=== PATIENT | male | born 1990 | race Two or more races ===

== ENCOUNTER 2018-03-26 14:44 | Emergency (ER) | payer MEDICAID, OTHER ==
[~2018-03-26] VITALS: Ht 175.3 cm; Wt 81.6 kg
[~2018-03-26 14:44] MED LIST: IBUPROFEN600 MG PO; NKM; NORCO 5-325 TA1 EACH ORAL; ONDANSETRON ODT4 MG ORAL
[2018-03-26] MEDS ORDERED: NKM (14:56)
[2018-03-26 15:07] VITALS: BP 96/53
--- NOTE | 2018-03-26 15:13 | Emergency Room Report ---
History of Present Illness General Chief Complaint: Multiple Trauma/Fall Source: Patient Present Illness HPI 28-year-old male patient presents the ER complaining of right shoulder pain status post falling off a second story roof 3 days ago. 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 Reports that he landed on his back. Denies hitting his head or loss of consciousness. Reports that he has some bruising on his back but does not feel any back pain, denies pain radiating down his legs. Denies bowel or bladder incontinence. Reports complaints of right shoulder pain. Reports pain with movement of shoulder. Denies vomiting or loss conscious. Denies vision changes. Reports does not take any medication for relief of pain symptoms. States that he thinks "the branches of the trees" help to "cushion his fall". Denies neck pain. Denies fever, chest pain, shortness of breath, abdominal pain. Patient ambulating independently without difficulty, denies pain with walking. Allergies: Coded Allergies: No Known Allergies (Unverified , 04/01/12) Patient History Past Medical History: see triage record Reviewed Nursing Documentation: PMH: Agreed; PSxH: Agreed Nursing Documentation-PMH Past Medical History: No Stated History Review of Systems All Other Systems: negative except mentioned in HPI Physical Exam Vital Signs Date Time Temp Pulse Resp B/P (MAP) Pulse Ox O2 Delivery O2 Flow Rate FiO2 03/26/18 14:52 98.1 102 18 96/53 98 Room Air Sp02 EP Interpretation: reviewed, normal General Appearance: well appearing, no apparent distress, alert, GCS 15, non- toxic Head: normocephalic, atraumatic Eyes: bilateral eye normal inspection, bilateral eye PERRL ENT: hearing grossly normal, normal pharynx, no angioedema, normal voice, uvula midline, moist mucus membranes Neck: full range of motion, no meningismus, no bony tend Respiratory: lungs clear, normal breath sounds, no rhonchi, no respiratory distress, no accessory muscle use, no wheezing, speaking full sentences Cardiovascular #2: 2+ radial (R), 2+ radial (L) Gastrointestinal: non tender, soft, no mass, non-distended, no guarding, no rebound Musculoskeletal: back normal, digits/nails normal, gait/station normal, normal range of motion, other - No bony depression, tender - Posterior right shoulder; lumbar spine Neurologic: alert, oriented x3, responsive, medicare contact specialist III-XII nml as tested, motor strength/tone normal, SLR negative, sensory intact, cerebellar normal, normal gait, speech normal Skin: no rash Medical Decision Making PA Attestation Dr. Gant is my supervising Physician whom patient management has been discussed with. Diagnostic Impression: Primary Impression: Multiple injuries due to trauma Additional Impressions: Fall Shoulder contusion Back pain ER Course Pt. presents to the ED c/o right shoulder pain, lumbar spine pain tender to palpation. Ddx considered but are not limited to fracture, sprain, strain, contusion, dislocation. Denies bowel or bladder incontinence, denies pain rating down legs, low suspicion for cauda equina. No erythema, no warmth to touch, no fever, nontoxic appearing, low suspicion for septic joint. Soft compartments, no pulselessness, no pallor, no paresthesias, low suspicion for compartment syndrome at this time. Vital signs: are WNL, pt. is afebrile Ordered X-ray and pain medication. ER COURSE Provided with pain medication, lidocaine patch, muscle relaxant., An X-ray of the right shoulder negative for acute disease per the preliminary reading. An X-ray of the lumbar spine negative for acute disease per the preliminary reading. Likely contusion causing pain symptoms. Patient able to ambulate independently without difficulty. Patient denied need for arm sling. States she is not able to return to normal work activities. Workman;s compensation paperwork completed. Patient instructed on RICE method: rest, ice, compression, elevation. Patient instructed on rest, ice and heat. Patient instructed to be WBAT Contact information for orthopedic urgent care provided, follow-up with urgent care if unable to followup with primary care provider and get referral to dairy specialist. Followup with primary care provider. Discuss referral to ortho/pain management/ PT as needed. Discuss further imaging with MRI/CT as needed. DISCHARGE: -Rx provided for Ibuprofen for pain symptoms. -Rx provided for Methocarbamol. SE drowsiness, do not drink, drive, or operate heavy machinery while using. Rx provided for lidocaine patch At this time pt. is stable for d/c to home. Patient is resting comfortably, in no acute distress, nontoxic appearing, talking without difficulty. Will provide printed patient care instructions, and any necessary prescriptions. Patient instructed to follow with primary care provider in 3 - 5 days and to request further follow-up as needed. Care plan and follow up instructions have been discussed with the patient prior to discharge. Take medications as directed. Patient questions asked and answered. Patient reports understanding and agreement to treatment plan. ER precautions given, patient instructed to return to ER immediately for any new or worsening of symptoms. - Please note that this Emergency Department Report was dictated using [employer] software, occasionally this can lead to erroneous entry secondary to interpretation by the dictation equipment. Other X-Ray Diagnostic Results Other X-Ray Diagnostic Results #1: X-Ray ordered: Lumbar spine # of Views/Limited Vs Complete: 4 View Indication: Pain EP Interpretation: Yes PA Xray: Interpretation reviewed, by supervising MD, and agrees with findings. Interpretation: no dislocation, no soft tissue swelling, no fractures Impression: No acute disease PA Scribe Eliseo Biggs PA-C Other X-Ray Diagnostic Results #2: X-Ray ordered: Right shoulder # of Views/Limited Vs Complete: 3 View Indication: Pain EP Interpretation: Yes PA Xray: Interpretation reviewed, by supervising MD, and agrees with findings. Interpretation: no dislocation, no soft tissue swelling, no fractures Impression: No acute disease PA Scribe Text Lux Biggs PA-C Last Vital Signs Date Time Temp Pulse Resp B/P (MAP) Pulse Ox O2 Delivery O2 Flow Rate FiO2 03/26/18 14:52 98.1 102 18 96/53 98 Room Air Status: improved Disposition: HOME, SELF-CARE Condition: Stable Scripts Methocarbamol* (ROBAXIN*) 500 Mg Tablet 500 MG PO TID, #21 TAB 0 Refills Prov: Rojas Biggs.A. 03/26/18 Ibuprofen* (MOTRIN*) 600 Mg Tablet 600 MG ORAL Q8H PRN for For Pain, #30 TAB 0 Refills Prov: Rojas Biggs P.A. 03/26/18 Lidocaine (Lidocaine) 1 Each Adh..patch 5 % TP DAILY for 7 Days, #7 PATCH Prov: Rojas Biggs.A. 03/26/18 Patient Instructions: Back Pain, Adult, [id number], Contusion, Antg-ct-Irry, Fall Prevention in the Home, [id number], Shoulder Pain, [id number] Additional Instructions: Patient instructed to follow up with primary care provider and discuss further referral to orthopedics/physical therapy/pain management as needed. If unable to followup with PCP, followup with orthopedic urgent care in 5-7 days , call to schedule appointment. Patient instructed on RICE method: rest, ice, compression, elevation. Patient instructed to WBAT. Take medications as directed. Patient questions asked and answered. ER precautions given, patient instructed to return to ER immediately for any new or worsening of symptoms. [facility] [address] [facility] [address] [facility], [id number] [email or web address] Rojas Biggs Mar 26, 2018 15:13
--- NOTE | 2018-03-26 15:14 | NUR ---
ED Nurse Note:s/p fall last week, c/o right shoulder pain, pt. came move his extremities
[2018-03-26] MEDS ORDERED: Methocarbamol 500mg tab ORAL ONE (15:15)
--- NOTE | 2018-03-26 15:37 | Diagnostic Imaging Report ---
. Indication: Pain status post fall Technique: XRAY L Spine Ltd Comparison: Images of the lumbar spine from CT of the abdomen and pelvis 09/11/2012. Findings: Bone mineralization within normal limits. There are 5 nonrib-bearing lumbar-type vertebral bodies, assuming 12 paired ribs. No abnormal lumbar curvature on frontal view. Lumbar lordosis is maintained on lateral view. No evidence of acute fracture. Vertebral body heights and disc spaces maintained. Sacroiliac joints and partially imaged hip joints preserved. Bowel gas pattern nonobstructive. There are some pelvic phleboliths. No radiopaque foreign body. Impression: No evidence of acute fracture or traumatic malalignment.
--- NOTE | 2018-03-26 15:38 | Diagnostic Imaging Report ---
Indication: Pain status post fall Technique: XRAY Shoulder Compl R Comparison: None Findings: Bone mineralization within normal limits. There is no evidence of acute fracture. Glenohumeral clinically likely joints are maintained. Imaged portions of the right lung are clear. No radiopaque foreign body. Impression: No acute fracture or dislocation.
[2018-03-26] MEDS ORDERED: ROBAXIN500 MG PO (15:56)
[2018-03-26] MEDS ORDERED: LIDOCAINE700 M1 TP (15:56)
[2018-03-26] MEDS ORDERED: IBUPROFEN600 MG ORAL (15:56)
[2018-03-26 16:09] VITALS: BP 102/59
--- NOTE | 2018-03-26 16:11 | NUR ---
ED Nurse Note: Pt is DC per ER provider order. pt is alert and oriented times 4. pt vital signs, status and condition are within normal limits. pt has left with all belongings including DC notes and prescription. pt is able to understand DC notes and prescriptions. pt is instructed to follow up with primary provider as soon as possible. pt is stable for discharge. pt is able to ambulate with steady gait. PT ID is DC.
== END 2018-03-26 16:20 | disposition home or self-care (01) ==
LOC: EMR 15:36
DX: S40.011A Contusion of right shoulder, initial encounter (principal); M54.5 Low back pain; W13.2XXA Fall from, out of or through roof, initial encounter; Y92.89 Other specified places as the place of occurrence of the external cause; Y99.0 Civilian activity done for income or pay
CPT/HCPCS: 72020; 99284